=== PATIENT | female | born 1970 | race Asian ===

== ENCOUNTER → 2022-12-07 | Outpatient (CLI) | payer OTHER ==
[2022-12-08 10:58] LABS: Stool Occult Bld Immuno 1 Negative (NEGATIVE)
== END | disposition home or self-care (01) ==
LOC: LAB SHORT 09:15
PROVIDERS: Nurse Practitioner Family
DX: Z12.11 Encounter for screening for malignant neoplasm of colon (principal)
CPT/HCPCS: G0328

== ENCOUNTER → 2023-08-25 | Outpatient (CLI) | payer OTHER | LOC: LAB 17:11 → LAB SHORT 17:11 | DX: D48.5 Neoplasm of uncertain behavior of skin (principal); L08.9 Local infection of the skin and subcutaneous tissue, unspecified; L57.8 Other skin changes due to chronic exposure to nonionizing radiation | CPT/HCPCS: 87070; 87077; 87186; 87205 ==

== ENCOUNTER → 2023-09-02 | Outpatient (CLI) | payer OTHER | LOC: LAB SHORT 08:07 → LAB 08:07 | DX: L08.9 Local infection of the skin and subcutaneous tissue, unspecified (principal); L02.212 Cutaneous abscess of back [any part, except buttock and flank]; L91.0 Hypertrophic scar; L57.8 Other skin changes due to chronic exposure to nonionizing radiation | CPT/HCPCS: 87070; 87077; 87186; 87205 ==